=== PATIENT | male | born 1985 | race Hispanic/Latino ===

== ENCOUNTER 2020-01-23 05:52 | Emergency (ER) | payer SELFPAY ==
[2020-01-23] MEDS ORDERED: Sodium Chloride 0.9% 1,000 ML IV ONE (06:20)
[2020-01-23] MEDS ORDERED: Pantoprazole 40 MG in Sodium Chloride 0.9% 10 ML IV ONE (06:22)
--- NOTE | 2020-01-23 06:22 | EDM.PDOC ---
<Mamta Chavis H - Last Filed: 01/23/20 07:09> ED HPI GENERAL MEDICAL PROBLEM - General Chief Complaint: Abdominal Pain Stated Complaint: RIGHT SIDE ABD PAIN Time Seen by Provider: 01/23/20 06:00 Source of Information: Reports: Patient History Limitations: Reports: No Limitations - History of Present Illness INITIAL COMMENTS - FREE TEXT/NARRATIVE: Is a 34-year-old male is complaining of having right upper quadrant pain that is been ongoing for the past 3 weeks but has been worse for the last 3 days. Patient states pain is worse when he lays down at night and he feels better sitting up. He denies any radiation of the pain. He describes this is kind of a dull ache and is moderate in severity. He denies pain feels worse with eating or with drinking alcohol. Patient denies any burning nature to his pain. He is not nauseous there is been no vomiting he has had no diarrhea. He denies any bloody or tarry looking stools. Patient has been taking ibuprofen for his pain which has been helping. He currently has very mild symptoms. He has had no fever or chills. He has no chest pain or pressure and is not short of breath and does not have a cough. He has no past medical or surgical history. He has not had similar pain prior to 3 weeks ago. 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 Abdomen Pain Score (Numeric/FACES): 7 - Related Data Allergies Allergy/AdvReac Type Severity Reaction Status Date / Time No Known Allergies Allergy Verified 01/23/20 06:08 Home Meds: Home Meds Dicyclomine [Bentyl] 20 mg PO TID 7 Days #20 tab 01/23/20 [Rx] Past Medical History HEENT History: Reports: None Cardiovascular History: Reports: None Respiratory History: Reports: None Gastrointestinal History: Reports: None Genitourinary History: Reports: None Musculoskeletal History: Reports: None Neurological History: Reports: None Psychiatric History: Reports: None Endocrine/Metabolic History: Reports: None Insulin Pump Model and Recovery Auditor: None Hematologic History: Reports: None Immunologic History: Reports: None Oncologic (Cancer) History: Reports: None Dermatologic History: Reports: None - Infectious Disease History Infectious Disease History: Reports: None - Past Surgical History Head Surgeries/Procedures: Reports: None Male Surgical History: Reports: None Social & Family History - Family History Family Medical History: Noncontributory - Tobacco Use Smoking Status *Q: Current Some Day Smoker Years of Tobacco use: 5 Packs/Tins Daily: 0.5 - Caffeine Use Caffeine Use: Reports: Coffee - Recreational Drug Use Recreational Drug Use: No ED ROS GENERAL - Review of Systems Review Of Systems: Comprehensive ROS is negative, except as noted in HPI. ED EXAM, GI/ABD - Physical Exam Exam: See Below Exam Limited By: No Limitations General Appearance: Alert, No Apparent Distress Throat/Mouth: Normal Inspection Head: Normocephalic Neck: Normal Inspection, Supple Respiratory/Chest: No Respiratory Distress, Lungs Clear, Normal Breath Sounds Cardiovascular: Normal Peripheral Pulses, Regular Rate, Rhythm, No Edema GI/Abdominal Exam: Normal Bowel Sounds, Soft, Non-Tender, No Organomegaly, No Distention Back Exam: Normal Inspection. No: CVA Tenderness (L), CVA Tenderness (R) Extremities: Normal Inspection, No Pedal Edema Neurological: Alert, Oriented Psychiatric: Normal Affect Skin Exam: Warm, Dry Course - Vital Signs Text/Narrative:: Patient's lab work is unremarkable. Patient is waiting to get an ultrasound done this morning of his gallbladder. If he has gallstones I am recommending follow-up with our surgeon. If there are no gallstones he should follow-up with a prosthetic aides teacher. In either case low-fat diet with small meals only. Baho-rdy-esgxton acid blocking medicine for 2 to 4 weeks and an acids as needed. Ibuprofen with meals. Last Recorded V/S: Last Vital Signs Temp 36.1 C 01/23/20 06:05 Pulse 67 01/23/20 06:05 Resp 18 01/23/20 06:05 BP 125/99 H 01/23/20 06:05 Pulse Ox 98 01/23/20 06:05 - Orders/Labs/Meds Orders: Active Orders 24 hr Category Date Time Status Abdomen Ltd [US] Stat Exams 01/23/20 06:21 Ordered Labs: Laboratory Tests 01/23/20 01/23/20 Range/Units 06:10 06:10 WBC 7.63 (4.0-11.0) K/uL RBC 5.54 (4.50-5.90) M/uL Hgb 16.7 (13.0-17.0) g/dL Hct 48.9 (38.0-50.0) % MCV 88.3 (80.0-98.0) fL MCH 30.1 (27.0-32.0) pg MCHC 34.2 (31.0-37.0) g/dL RDW Std Deviation 42.8 (28.0-62.0) fl RDW Coeff of Jeb 13 (11.0-15.0) % Plt Count 265 (150-400) K/uL MPV 9.80 (7.40-12.00) fL Neut % (Auto) 49.7 (48.0-80.0) % Lymph % (Auto) 35.8 (16.0-40.0) % Mercer % (Auto) 9.0 (0.0-15.0) % Eos % (Auto) 5.2 (0.0-7.0) % Baso % (Auto) 0.3 (0.0-1.5) % Neut # (Auto) 3.8 (1.4-5.7) K/uL Lymph # (Auto) 2.7 H (0.6-2.4) K/uL Mercer # (Auto) 0.7 (0.0-0.8) K/uL Eos # (Auto) 0.4 (0.0-0.7) K/uL Baso # (Auto) 0.0 (0.0-0.1) K/uL Nucleated RBC % 0.0 /100WBC Nucleated RBCs # 0 K/uL Sodium 138 (136-148) mmol/L Potassium 3.6 (3.5-5.1) mmol/L Chloride 102 (98-107) mmol/L Carbon Dioxide 29.3 (21.0-32.0) mmol/L BUN 11 (7.0-18.0) mg/dL Creatinine 1.0 (0.8-1.3) mg/dL Est Cr Clr Drug Dosing 106.46 mL/min Estimated GFR (MDRD) > 60.0 ml/min Glucose 106 (74-106) mg/dL Calcium 8.6 (8.5-10.1) mg/dL Total Bilirubin 0.5 (0.2-1.0) mg/dL AST 15 (15-37) IU/L ALT 36 (14-63) IU/L Alkaline Phosphatase 88 (46-116) U/L Total Protein 7.9 (6.4-8.2) g/dL Albumin 4.2 (3.4-5.0) g/dL Globulin 3.7 (2.6-4.0) g/dL Albumin/Globulin Ratio 1.1 (0.9-1.6) Lipase 101 (73-393) U/L Meds: Medications Discontinued Medications Generic Name Dose Route Start Last Admin Trade Name Freq PRN Reason Stop Dose Admin Sodium Chloride 1,000 mls @ 999 mls/hr 01/23/20 06:20 01/23/20 06:33 Normal Saline IV 01/23/20 07:20 999 mls/hr .BOLUS ONE Administration Pantoprazole Sodium 40 mg/ 10 mls @ 300 mls/hr 01/23/20 06:22 01/23/20 06:33 Sodium Chloride IV 01/23/20 06:23 300 mls/hr NOW ONE Administration Departure - Departure Time of Disposition: 07:11 Disposition: Home, Self-Care 01 Condition: Good Clinical Impression: Abdominal pain - Discharge Information Prescriptions: Dicyclomine [Bentyl] 20 mg PO TID 7 Days #20 tab Referrals: PCP,None [Primary Care Provider] - Forms: ED Department Discharge Additional Instructions: The following information is given to patients seen in the emergency department who are being discharged to home. This information is to outline your options for follow-up care. We provide all patients seen in our emergency department with a follow-up referral. The need for follow-up, as well as the timing and circumstances, are variable depending upon the specifics of your emergency department visit. If you don't have a primary care physician on staff, we will provide you with a referral. We always advise you to contact your personal physician following an emergency department visit to inform them of the circumstance of the visit and for follow-up with them and/or the need for any referrals to a consulting specialist. The emergency department will also refer you to a specialist when appropriate. This referral assures that you have the opportunity for follow-up care with a specialist. All of these measure are taken in an effort to provide you with optimal care, which includes your follow-up. Under all circumstances we always encourage you to contact your private physician who remains a resource for coordinating your care. When calling for follow-up care, please make the office aware that this follow-up is from your recent emergency room visit. If for any reason you are refused follow-up, please contact the [facility] Emergency Department at and asked to speak to the emergency department charge nurse Rickey Lewis [facility] [address] [place] [id number] [facility] [address] [place] [id number] [facility] [place] [facility] Professional Building [address] [place] [address], [address] [place] [address] Sepsis Event Note - Evaluation Sepsis Screening Result: No Definite Risk - Focused Exam Vital Signs: Vital Signs Temp Pulse Resp BP Pulse Ox 01/23/20 06:05 36.1 C 67 18 125/99 H 98 Date Exam was Performed: 01/23/20 Time Exam was Performed: 07:09 <Fabián David - Last Filed: 01/23/20 07:59> Course - Vital Signs Text/Narrative:: Ultrasound was negative for dilated common bile duct stones or other findings there was a slightly thickened gallbladder wall but no evidence of cholecystitis. Departure - Discharge Information *PRESCRIPTION DRUG MONITORING PROGRAM REVIEWED*: Not Applicable *COPY OF PRESCRIPTION DRUG MONITORING REPORT IN PATIENT ALYSSA: Not Applicable Sepsis Event Note - Focused Exam Date Exam was Performed: 01/23/20 Time Exam was Performed: 07:52
[2020-01-23 06:45] LABS: BLOOD UREA NITROGEN,BUN 11 mg/dL (7.0-18.0); CARBON DIOXIDE,CO2 29.3 mmol/L (21.0-32.0); CHLORIDE,CL 102 mmol/L (98-107); GLUCOSE RANDOM 106 mg/dL (74-106); LIPASE 101 U/L (73-393); POTASSIUM,K 3.6 mmol/L (3.5-5.1); SODIUM,NA 138 mmol/L (136-148)
[2020-01-23] MEDS ORDERED: Famotidine 20 MG/2 ML SDV IVPUSH ONE (08:04)
--- NOTE | 2020-01-23 08:33 | US ---
INDICATION: Right upper quadrant abdomen pain TECHNIQUE: Ultrasound abdomen limited. Sonographic images of the right upper quadrant were obtained using khan-scale and color Doppler images. COMPARISON: None FINDINGS: Liver: Normal in size and echotexture. No masses. No intrahepatic biliary dilatation. Gallbladder: No stones or sludge. Normal wall thickness. No pericholecystic fluid. Common bile duct: 3 mm. Pancreas: Normal. Right kidney: Normal in size. Normal echotexture and cortex. No suspicious masses, stones, or hydronephrosis. Vasculature: Proximal abdominal aorta and IVC are normal. IMPRESSION: Unremarkable right upper quadrant ultrasound. Dictated by Jeff Horton MD @ Jan 23 2020 8:28AM Signed by Dr. Jeff Horton @ Jan 23 2020 8:31AM
== END 2020-01-23 08:33 | disposition home or self-care (01) ==
LOC: MW.ED 05:52
DX: R10.11 Right upper quadrant pain (principal)
CPT/HCPCS: 36415; 76705; 80053; 83690; 85025; 96374; 96375; 99284; C9113; J7030; J7050; S0028; 99283; J3490